=== PATIENT | male | born 1965 | race Caucasian/White ===

== ENCOUNTER 2016-06-22 16:35 | Emergency (ER) | payer BC ==
[~2016-06-22] VITALS: Ht 185.4 cm; Wt 112.0 kg
[~2016-06-22 16:35] MED LIST: HYDR-2678 PO; IBUP-1007 PO
[2016-06-22] MEDS ORDERED: MECL25TA3 PO (17:42)
--- NOTE | 2016-06-22 17:42 | PHYS DOC ---
Past Medical History Past Medical History: Anxiety, Diabetes-Type II, GERD, High Cholesterol, Hypertension Past Surgical History: Other Additional Past Surgical Histo: neck Alcohol Use: Occasionally Drug Use: None Adult General Chief Complaint Chief Complaint: dizziness HPI HPI Patient is a 51 year old male brought to the ED by his with the complaint of dizzy spells for now 3 days. Patient first noticed this Monday morning when he woke up, he was laying on his side and he sat up in bed, "the room was spinning". He continued to have intermittent episodes of room spinning dizziness on Monday and to a lesser degree on Monday. He noticed this especially when he would move his head quickly or when he bent down to pick something up. They checked his blood pressure and his blood sugars and both seem to be doing okay. The vertigo is intermittent. He's had no headache, no head injury, no ear pain or hearing difficulties. 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 He continually wasn't quite right. He did okay all day until he bent down to picker and packer a piece of paper and again had an episode of vertigo so came into the ED. He's never had this before. PCP Dr. Primo Steele Review of Systems Review of Systems Constitutional: Denies fever or chills [] Eyes: Denies change in visual acuity, redness, or eye pain [] HENT: Denies nasal congestion or sore throat [] Respiratory: Denies cough or shortness of breath [] Cardiovascular: Denies chest pain GI: Denies abdominal pain, nausea, vomiting, bloody stools or diarrhea [] : Denies dysuria or hematuria [] Musculoskeletal: Denies back pain or joint pain [] Integument: Denies rash or skin lesions [] Neurologic: Denies headache, focal weakness or sensory changes [] Current Medications Current Medications Current Medications Medications (Trade) Dose Ordered Sig/Johnson Start Time Stop Time Status Last Admin Dose Admin Meclizine HCl (Antivert) 25 mg 1X ONCE 06/22/16 17:45 06/22/16 17:46 DC Allergies Allergies Allergies Coded Allergies Type Severity Reaction Last Updated Verified No Known Drug Allergies 05/28/16 No Physical Exam Physical Exam Constitutional: Well developed, well nourished, no acute distress, non-toxic appearance. Alert, mentating normally, nonfocal. HENT: Normocephalic, atraumatic, bilateral external ears normal, bilateral EACs normal without significant cerumen, bilateral TMs normal in color and appearance , oropharynx moist, no oral exudates, nose normal. [] Eyes: PERRLA, EOMI, conjunctiva normal, no discharge. No nystagmus. Neck: Normal range of motion, no stridor. [] Cardiovascular:Heart rate regular rhythm, no murmur [] Lungs & Thorax: Bilateral breath sounds clear to auscultation [] Abdomen: Bowel sounds normal, soft, no tenderness, no masses, no pulsatile masses. [] Skin: Warm, dry, no erythema, no rash. [] Extremities: No tenderness, no cyanosis, no clubbing, ROM intact, no edema. [] Neurologic: Alert and oriented X 3, normal motor function, normal sensory function, no focal deficits noted. No facial asymmetry Current Patient Data Vital Signs Vital Signs Date Time Temp Pulse Resp B/P Pulse Ox O2 Delivery O2 Flow Rate FiO2 06/22/16 17:50 68 18 134/86 98 Room Air 06/22/16 16:49 97.9 97.9 EKG EKG [] Radiology/Procedures Radiology/Procedures [] Course & Med Decision Making Course & Med Decision Making Pertinent Labs and Imaging studies reviewed. (See chart for details) 51-year-old male who has had intermittent episodes of room spinning vertigo for now 3 days, actually was worse the first day, a little better yesterday, and just had it a little bit today. The symptoms appeared to clearly be labyrinthine vertigo. His blood pressure is within normal limits. He's had no headache. It's been intermittent and especially at first , fairly dramatic. Discussed vertigo with the patient. We will treat him with meclizine. He should not drive while taking meclizine or until vertigo has cleared up. If not all better in a couple of days, I advised follow-up with his PCP who may want to send him to ENT. [] Dragon Disclaimer Dragon Disclaimer This electronic medical record was generated, in whole or in part, using a voice recognition dictation system. Departure Departure Impression: Primary Impression: Vertigo Disposition: 01 HOME, SELF-CARE Condition: STABLE Referrals: GREYSON STEELE MD (PCP) Patient Instructions: Vertigo, [id number] Additional Instructions: The type of dizziness that you are having is vertigo. It is usually caused by a problem with your inner ear, which is the organ of equilibrium. We will try treating with meclizine, which usually helps. If this continues to bother you after 2 days, call your doctor for appointment, you may need to have a referral to ENT or your doctor may be able to do a treatment that will help. No driving while taking meclizine or while having vertigo. Avoid quick movements of your head or body which have caused your symptoms. Scripts Meclizine Hcl 25 Mg Tablet1 Tab PO Q6-8HRS #30 TAB As needed for vertigo No driving while taking Prov:ARON HOROWITZ MD 06/22/16 ARON HOROWITZ MD Jun 22, 2016 17:42
[2016-06-22] MEDS ORDERED: MECLIZINE HCL 12.5 MG TABLET. PO ONE (17:45)
[2016-06-22 17:50] VITALS: BP 134/86
--- NOTE | 2016-06-23 06:54 | EKG ---
[facility] [address] [place] [address] Test Date: 2016-06-22 Test Time: 17:13:10 Pat Name: KIMBERLEY SIMONS Department: Room: Gender: M Sewer Repairer: : 1965 Requested By: ARON HOROWITZ Order Number: [id number] Reading MD: Staci Pereira Measurements Intervals [place] Rate: 77 P: 33 ME: 178 QRS: 8 QRSD: 92 T: 26 QT: 380 QTc: 432 Interpretive Statements SINUS RHYTHM NO SPECIFIC ECG ABNORMALITIES RI6.01 No previous ECG available for comparison Electronically Signed On 06-26-2016 23:03:18 [employer]IOR [employer]S [employer] by Staci Pereira
== END 2016-06-22 18:00 | disposition home or self-care (01) ==
LOC: ER 16:35
DX: R42 Dizziness and giddiness (principal); E11.9 Type 2 diabetes mellitus without complications; E78.00 Pure hypercholesterolemia, unspecified; F41.9 Anxiety disorder, unspecified; I10 Essential (primary) hypertension; K21.9 Gastro-esophageal reflux disease without esophagitis
CPT/HCPCS: 93005; 99283-25